=== PATIENT | female | born 1940 | race Caucasian/White ===

== ENCOUNTER 2018-10-12 10:57 | Emergency (ER) | payer OTHER ==
--- OUTSIDE RECORDS SUMMARY | 2018-10-12 11:01 | XMS REPORT | Continuity of Care Document ---
:1940 Author Organization Interface Problems Problem Status Onset Date Classification Date Comments Source Reported Medications Medication Details Route Status Patient Ordering Order Source Instructions Provider Date Allergies, Adverse Reactions, Alerts Substance Category Reaction Severity Reaction Status Date Comments Source type Reported Immunizations Immunization Date Given Site Status Last Updated Comments Source Results Order Results Value Reference Date Interpretation Comments Source Name Range Vital Signs Vital Sign Value Date Comments Source Encounters Location Location Encounter Encounter Reason Attending ADM DC Status Source Details Type Number For Provider Date Date Visit Outpatient [id number] [facility] 02[facility]24 [facility] [place] Outpatient [id number] [place] 03[facility]03 [facility] Out[facility] [id number] [facility] 05/12 [facility] Outpatient [id number] [place] 07[facility]14 [facility] Outpatient [id number] [place] 10/13 [facility] [place] Procedures Procedure Code Date Perfomer Comments Source
--- NOTE | 2018-10-12 11:37 | RAD REPORT ---
EXAM DESCRIPTION: CT - [id number] - 10/12/2018 11:28 am CLINICAL HISTORY: Trauma, head and neck injury. fall COMPARISON: Soft Tissue Neck Wo Contr dated 05/07/2017 TECHNIQUE: Axial 5 mm thick images of the head were obtained. Axial 2 mm thick images of the cervical spine were obtained with sagittal and coronal reconstruction images generated and reviewed. All CT scans are performed using dose optimization technique as appropriate and may include automated exposure control or mA/KV adjustment according to patient size. FINDINGS: CT HEAD WITHOUT CONTRAST: No acute hemorrhage, hydrocephalus or extra-axial collection is identified.Mild generalized brain atr ophy is present with mild periventricular and deep white matter chronic microvascular ischemic change s.No areas of brain edema or midline shift. The paranasal sinuses and mastoids are clear.The calvarium is intact. CT CERVICAL SPINE WITHOUT CONTRAST: No fracture or subluxation.Mild lower cervical degenerative changes.No prevertebral soft tissues swel ling is identified. Carotid atherosclerosis is present. IMPRESSION: No acute intracranial or cervical spine findings.
--- NOTE | 2018-10-12 11:42 | RAD REPORT ---
EXAM DESCRIPTION: CT - CTFB CLINICAL HISTORY: fall, Non contrast Fall, facial pain and trauma. COMPARISON: Head C Spine Mpr Wo Con dated 10/12/2018 TECHNIQUE: Axial 2 mm thick images of the face were obtained with sagittal and coronal reconstructio n images. All CT scans are performed using dose optimization technique as appropriate and may include automated exposure control or mA/KV adjustment according to patient size. FINDINGS: Minimal distal nasal bone fracture is present with soft tissue swelling.The mandible is in tact. The globes and orbital contents are grossly unremarkable.Carotid atherosclerosis.The paranasal sinuse s and mastoids are clear. IMPRESSION: Minimal nasal bone fracture.
--- NOTE | 2018-10-12 12:12 | RAD REPORT ---
EXAM DESCRIPTION: RAD - Shoulder Left 2 View - 10/12/2018 12:00 pm CLINICAL HISTORY: fall Trauma, fall, shoulder pain COMPARISON: No comparisons FINDINGS: Mildly impacted fracture the proximal left humerus is identified. A dislocation is not peggy dent.
--- NOTE | 2018-10-12 12:13 | RAD REPORT ---
EXAM DESCRIPTION: RAD - Elbow Left 3 View - 10/12/2018 12:00 pm CLINICAL HISTORY: fall Trauma, fall, left elbow pain COMPARISON: No comparisons FINDINGS: No fracture or dislocation seen involving the left elbow. Patient positioning mildly limit s quality of the submitted images.
[2018-10-12] MEDS ORDERED: TRAMADOL HCL 50 MG TAB ONE (12:55)
[2018-10-12] MEDS ORDERED: FENTANYL CITR 100 MCG/2 ML ONE (14:36)
[2018-10-12] MEDS ORDERED: KETOROLAC 30 MG/ML INJ ONE (15:43)
--- NOTE | 2018-10-12 16:15 | ER ---
Nurse's Notes [facility] Name: Kandy Calhoun Age: 77 yrs Sex: Female : 1940 Arrival Date: 10/12/2018 Time: 11:00 Bed 16 Private MD: Diagnosis: Humerus Fracture;Fracture of nasal bones Presentation: 10/12 11:00 Presenting complaint: Presenting complaint: EMS states: Left shoulder pain after hb mechanical fall from standing. Care prior to arrival: sling. Mechanism of Injury: Fall from standing position. Trauma event details: Injury occurred in the [facility], Injury occurred: at home. Injury occurred: October 12, 2018. 11:00 Acuity: HUONG 2 hb 11:00 Method Of Arrival: EMS: [facility] 11:10 Transition of care: patient was not received from another setting of care. Onset of hb symptoms was October 12, 2018. Risk Assessment: Do you want to hurt yourself or someone else? Patient reports no desire to harm self or others. Initial Sepsis Screen: Does the patient meet any 2 criteria? No. Patient's initial sepsis screen is negative. Does the patient have a suspected source of infection? No. Patient's initial sepsis screen is negative. Trauma Activation: Alert Physician: ED Physician; Name: ; Notified At: ; Arrived At: Physician: General Surgeon; Name: ; Notified At: ; Arrived At: Physician: Radiology; Name: ; Notified At: ; Arrived At: Physician: Respiratory; Name: ; Notified At: ; Arrived At: Physician: Lab; Name: ; Notified At: ; Arrived At: Historical: - Allergies: 11:07 Iodinated Contrast Media - IV Dye; hb 11:07 Sulfa (Sulfonamide Antibiotics); hb 11:08 hydrocodone bitartrate; hb - Home Meds: 11:07 Align 4 mg Oral cap [Active]; Desi Oral daily [Active]; aspirin 81 mg Oral chew 1 hb tab once daily [Active]; Avalide 150-12.5 mg Oral tab 1 tab once daily [Active]; azelastine hcl 0.1% daily [Active]; benzonatate 200 mg Oral cap 1 cap 3 times per day [Active]; biotin Oral daily [Active]; Flonase 50 mcg/actuation Nasal spsn 1 spray once daily [Active]; cholestyramine (with sugar) Oral [Active]; levothyroxine 50 mcg tab 1 tab once daily [Active]; Flonase 50 mcg/actuation Nasal spsn 1 spray once daily [Active]; methscopolamine 5 mg Oral tab 1 tab [Active]; Lipitor 40 mg Oral tab 1 tab once daily [Active]; metoprolol tartrate 25 mg Oral tab 1 tab 2 times per day [Active]; montelukast 10 mg Oral tab 1 tab once daily [Active]; Ocuvite 490-54-7-150 bo-uaee-od-mg Oral cap daily [Active]; Prilosec 40 mg Oral cpDR 1 cap once daily [Active]; Probiotic Oral daily [Active]; Zantac Oral once daily [Active]; Zetia 10 mg Oral tab 1 tab once daily [Active]; - PMHx: 11:08 High Cholesterol; Hypertension; lumbar stenosis; neuropathy; hb - PSHx: 11:08 colonoscopy; hb - Immunization history:: Adult Immunizations up to date. - Social history:: Smoking status: Patient/guardian denies using tobacco. - Immunization history: Last tetanus immunization: - up to date. - Ebola Screening: : No symptoms or risks identified at this time. Screenin:09 Abuse screen: Denies threats or abuse. Denies injuries from another. Nutritional hb screening: No deficits noted. Tuberculosis screening: No symptoms or risk factors identified. Fall Risk Total Richter Fall Scale indicates Low Risk Score (25-44 pts). Fall prevention measures have been instituted. Side Rails Up X 2 Frequent Obs/Assesments occuring Family Present and informed to notify staff if they need to leave bedside As available Patient and Family Educated on Fall Prevention Program and strategies. Primary Survey: 11:00 A: Airway: patent, No supplemental oxygen in use on arrival. Oral cavity: clear, hb Trachea midline. 11:00 Breathing/Chest: Respiratory pattern: regular, Respiratory effort: spontaneous, hb unlabored, Breath sounds: clear, bilaterally. Chest inspection: symmetrical rise and fall of the chest. Circulation: Skin color: pink, Skin temperature: warm, dry. Disability Alert. 12:00 Reassessment Airway Airway Patent Breathing/Chest Respiratory pattern Regular hb Respiratory effort Spontaneous Unlabored Chest inspection Symmetrical Circulation Pulses Palpable Color Greenback Temperature Warm Dry Disability Alert. 13:00 Reassessment Airway Airway Patent Breathing/Chest Respiratory pattern Regular hb Respiratory effort Spontaneous Unlabored Chest inspection Symmetrical Circulation Color Green[place] Temperature Warm Dry Disability Alert. 14:00 Reassessment Airway Airway Patent Breathing/Chest Respiratory pattern Regular hb Respiratory effort Spontaneous Unlabored Chest inspection Symmetrical Circulation Pulses Palpable Color [place] Temperature Warm Dry Disability Alert. 15:00 Reassessment Airway Airway Patent Breathing/Chest Respiratory pattern Regular hb Respiratory effort Spontaneous Unlabored Chest inspection Symmetrical Circulation Pulses Palpable Color Green[place] Temperature Warm Dry Disability Alert. Secondary Survey: 11:00 HEENT: No deficits noted. Gastrointestinal: No deficits noted. : No deficits noted. hb Musculoskeletal: Range of motion: limited in left shoulder Reports pain in left shoulder. Assessment: 11:10 General: Appears in no apparent distress. Behavior is calm, cooperative. Pain: Pain hb currently is 10 out of 10 on a pain scale. Neuro: Level of Consciousness is awake, alert, obeys commands, Oriented to person, place, time, situation. EENT: No signs and/or symptoms were reported regarding the EENT system. Cardiovascular: Heart tones S1 S2 present Capillary refill < 3 seconds Patient's skin is warm and dry. Respiratory: Airway is patent Trachea midline Respiratory effort is even, unlabored, Respiratory pattern is regular, symmetrical, Breath sounds are clear bilaterally. GI: No signs and/or symptoms were reported involving the gastrointestinal system. : No signs and/or symptoms were reported regarding the genitourinary system. Derm: Skin is intact, is healthy with good turgor. Musculoskeletal: Range of motion: limited in left shoulder Reports pain in left shoulder. 12:00 Reassessment: Patient appears in no apparent distress at this time. Patient and/or hb family updated on plan of care and expected duration. Pain level reassessed. Patient is alert, oriented x 3, equal unlabored respirations, skin warm/dry/pink. at bedside. 13:00 Reassessment: Patient appears in no apparent distress at this time. No changes from hb previously documented assessment. Patient and/or family updated on plan of care and expected duration. Pain level reassessed. Patient is alert, oriented x 3, equal unlabored respirations, skin warm/dry/pink. 14:00 Reassessment: Patient appears in no apparent distress at this time. No changes from hb previously documented assessment. Patient and/or family updated on plan of care and expected duration. Pain level reassessed. Patient is alert, oriented x 3, equal unlabored respirations, skin warm/dry/pink. remains at bedside. Vital Signs: 11:02 BP 155 / 97; Pulse 70; Resp 16; Pulse Ox 99% on R/A; Pain 9/10; hb 12:00 BP 136 / 78; Pulse 74; Resp 16; Pulse Ox 100% on R/A; Pain 7/10; hb 13:00 BP 142 / 82; Pulse 77; Resp 15; Pulse Ox 100% ; Pain 5/10; hb 14:02 BP 146 / 62; Pulse 70; Resp 17; Pulse Ox 94% on R/A; ca1 [place] Coma Score: 13:00 Eye Response: spontaneous(4). Verbal Response: oriented(5). Motor Response: obeys hb commands(6). Total: 15. 14:02 Eye Response: spontaneous(4). Verbal Response: oriented(5). Motor Response: obeys ca1 commands(6). Total: 15. Trauma Score (Adult): 11:02 Eye Response: spontaneous(1); Verbal Response: oriented(1); Motor Response: obeys hb commands(2); Systolic BP: > 89 mm Hg(4); Respiratory Rate: 10 to 29 per min(4); [place] Score: 15; Trauma Score: 12 12:00 Eye Response: spontaneous(1); Verbal Response: oriented(1); Motor Response: obeys hb commands(2); Systolic BP: > 89 mm Hg(4); Respiratory Rate: 10 to 29 per min(4); [place] Score: 15; Trauma Score: 12 ED Course: 11:00 Patient arrived in ED. hb 11:02 Triage completed. hb 11:05 Destiny Ledesma, RN is Primary Nurse. ca1 11:09 Arm band placed on right wrist. hb 11:09 Patient has correct armband on for positive identification. Placed in gown. Bed in low hb position. Call light in reach. Side rails up X2. 11:09 Patient maintains SpO2 saturation greater than 95% on room air. Thermoregulation: warm hb blanket given to patient. 11:13 Maik Ortiz PA is PHCP. rex 11:13 Jose Martin Hernandez MD is Attending Physician. jmm 11:29 CT Head C Spine In Process Unspecified. EDMS 11:29 Facial Bones W/O Con CT In Process Unspecified. EDMS 12:01 Shoulder Left (2 View) XRAY In Process Unspecified. EDMS 12:01 Elbow Left 3 View XRAY In Process Unspecified. EDMS 16:14 Aubrey Reynolds MD is Referral Physician. alyse Administered Medications: 13:13 Drug: UltRAM 50 mg Route: PO; hb 13:50 Follow up: Response: No adverse reaction; Pain is decreased hb 14:34 Drug: fentaNYL (PF) 50 mcg Route: IVP; Site: right antecubital; hb 15:45 Drug: Ketorolac 30 mg Route: IM; Site: right deltoid; hb Outcome: 16:10 Discharged to home via wheelchair, with family. hb 16:10 Condition: stable 16:10 Discharge instructions given to patient, Instructed on discharge instructions, follow up and referral plans. medication usage, Demonstrated understanding of instructions, follow-up care, medications, Prescriptions given X 2. 16:10 Patient's length of stay in the Emergency Department was greater than 2 hours. awaiting dispo, delayed due to pain controlPatient's length of stay extended due to 16:15 Discharge ordered by . alyse 16:29 Patient left the ED. tw2 Signatures: Dispatcher [employer] EDMS Maik Ortiz PA PA jmm Baxter, Heather RN Funmi Bravo RN RN tw2 Destiny Ledesma RN RN ca1
--- NOTE | 2018-10-12 16:15 | EDPHYS ---
Physician Documentation [facility] Name: Kandy Calhoun Age: 77 yrs Sex: Female : 1940 Arrival Date: 10/12/2018 Time: 11:00 Bed 16 Private MD: ED Physician Jose Martin Hernandez HPI: 10/12 11:17 This 77 yrs old Female presents to ER via EMS with complaints of Fall Injury. [facility] 11:17 Details of fall: The patient fell from an upright position, while walking. Onset: The [facility] symptoms/episode began/occurred acutely, just prior to arrival. Associated injuries: The patient sustained injury to the head, left arm. The patient has not experienced similar symptoms in the past. This is a 77 year old female with a history of hlp, htn that presents to the ED with left arm pain and nasal swelling after she states she tripped and fell from a standing position, just prior to arrival. Patient denies other injury. Historical: - Allergies: 11:07 Iodinated Contrast Media - IV Dye; hb 11:07 Sulfa (Sulfonamide Antibiotics); hb 11:08 hydrocodone bitartrate; hb - Home Meds: 11:07 Align 4 mg Oral cap [Active]; Desi Oral daily [Active]; aspirin 81 mg Oral chew 1 hb tab once daily [Active]; Avalide 150-12.5 mg Oral tab 1 tab once daily [Active]; azelastine hcl 0.1% daily [Active]; benzonatate 200 mg Oral cap 1 cap 3 times per day [Active]; biotin Oral daily [Active]; Flonase 50 mcg/actuation Nasal spsn 1 spray once daily [Active]; cholestyramine (with sugar) Oral [Active]; levothyroxine 50 mcg tab 1 tab once daily [Active]; Flonase 50 mcg/actuation Nasal spsn 1 spray once daily [Active]; methscopolamine 5 mg Oral tab 1 tab [Active]; Lipitor 40 mg Oral tab 1 tab once daily [Active]; metoprolol tartrate 25 mg Oral tab 1 tab 2 times per day [Active]; montelukast 10 mg Oral tab 1 tab once daily [Active]; Ocuvite 064-33-4-150 au-yijj-gz-mg Oral cap daily [Active]; Prilosec 40 mg Oral cpDR 1 cap once daily [Active]; Probiotic Oral daily [Active]; Zantac Oral once daily [Active]; Zetia 10 mg Oral tab 1 tab once daily [Active]; - PMHx: 11:08 High Cholesterol; Hypertension; lumbar stenosis; neuropathy; hb - PSHx: 11:08 colonoscopy; hb - Immunization history:: Adult Immunizations up to date. - Social history:: Smoking status: Patient/guardian denies using tobacco. - Immunization history: Last tetanus immunization: - up to date. - Ebola Screening: : No symptoms or risks identified at this time. ROS: 11:17 Constitutional: Negative for fever, chills, and weight loss, Cardiovascular: Negative jmm for chest pain, palpitations, and edema, Respiratory: Negative for shortness of breath, cough, wheezing, and pleuritic chest pain. 11:17 MS/extremity: Positive for injury or acute deformity, laceration. 11:17 All other systems are negative. Exam: 11:17 Constitutional: This is a well developed, well nourished patient who is awake, alert, jmm and in no acute distress. 11:17 Eyes: EOMI, no conjunctival erythema appreciated 11:17 Neck: Trachea midline, Supple Chest/axilla: Normal chest wall appearance and motion. Cardiovascular: Regular rate and rhythm. No edema appreciated Respiratory: Normal respirations, no respiratory distress appreciated Abdomen/GI: Non distended, soft 11:17 Head/face: abrasion noted to the bridge of the nose. 11:17 ENT: Nose: abrasion, that is superficial. 11:17 Musculoskeletal/extremity: left shoulder is ttp, full radial pulse is appreciated, compartments are soft, nvi. 11:17 Skin: Appearance: Color: normal in color. 11:17 Neuro: Orientation: is normal, Mentation: is normal, Memory: is normal. 11:17 Psych: Behavior/mood is pleasant, cooperative. Vital Signs: 11:02 BP 155 / 97; Pulse 70; Resp 16; Pulse Ox 99% on R/A; Pain 9/10; hb 12:00 BP 136 / 78; Pulse 74; Resp 16; Pulse Ox 100% on R/A; Pain 7/10; hb 13:00 BP 142 / 82; Pulse 77; Resp 15; Pulse Ox 100% ; Pain 5/10; hb 14:02 BP 146 / 62; Pulse 70; Resp 17; Pulse Ox 94% on R/A; ca1 [place] Coma Score: 13:00 Eye Response: spontaneous(4). Verbal Response: oriented(5). Motor Response: obeys hb commands(6). Total: 15. 14:02 Eye Response: spontaneous(4). Verbal Response: oriented(5). Motor Response: obeys ca1 commands(6). Total: 15. Trauma Score (Adult): 11:02 Eye Response: spontaneous(1); Verbal Response: oriented(1); Motor Response: obeys hb commands(2); Systolic BP: > 89 mm Hg(4); Respiratory Rate: 10 to 29 per min(4); [place] Score: 15; Trauma Score: 12 12:00 Eye Response: spontaneous(1); Verbal Response: oriented(1); Motor Response: obeys hb commands(2); Systolic BP: > 89 mm Hg(4); Respiratory Rate: 10 to 29 per min(4); Mia Score: 15; Trauma Score: 12 MDM: 11:17 Patient medically screened. [facility] 16:13 Data reviewed: vital signs, nurses notes. Counseling: I had a detailed discussion with alyse the patient and/or guardian regarding: the historical points, exam findings, and any diagnostic results supporting the discharge/admit diagnosis, lab results, the need for outpatient follow up, to return to the emergency department if symptoms worsen or persist or if there are any questions or concerns that arise at home. 16:13 Response to treatment: the patient's symptoms have mildly improved after treatment. [facility] 16:13 ED course: patient is alert and non toxic in appearance in the ED. patient advised of alyse the need to follow up with orthopedics in 1 to 2 days. given return precautions. patient understood and agrees with the plan of care. . 10/12 11:19 Order name: CT Head C Spine; Complete Time: 11:47 [facility] 10/12 11:19 Order name: Facial Bones W/O Con CT; Complete Time: 11:47 [facility] 10/12 11:19 Order name: Shoulder Left (2 View) XRAY; Complete Time: 12:18 [facility] 10/12 11:19 Order name: Elbow Left 3 View XRAY; Complete Time: 12:18 [facility] Administered Medications: 13:13 Drug: UltRAM 50 mg Route: PO; hb 13:50 Follow up: Response: No adverse reaction; Pain is decreased hb 14:34 Drug: fentaNYL (PF) 50 mcg Route: IVP; Site: right antecubital; hb 15:45 Drug: Ketorolac 30 mg Route: IM; Site: right deltoid; hb Disposition: 16:42 Co-signature as Attending Physician, Jose Martin Hernandez MD. Chart complete. rn Disposition: 10/12/18 16:15 Discharged to Home. Impression: Humerus Fracture, Fracture of nasal bones. - Condition is Stable. - Discharge Instructions: Humerus Fracture Treated With Immobilization, Nasal Fracture. - Prescriptions for Amoxicillin 875 mg Oral Tablet - take 1 tablet by ORAL route every 12 hours for 10 days; 20 tablet. Ultracet 37.5- 325 mg Oral Tablet - take 1 tablet by ORAL route every 6 hours - for up to 5 days; do not exceed 8 tablets per day.; 20 tablet. - Medication Reconciliation Form, Thank You Letter, Antibiotic Education, Prescription Opioid Use form. - Follow up: Aubrey Reynolds MD; When: 2 - 3 days; Reason: Recheck today's complaints, Continuance of care, Re-evaluation by your physician. Signatures: Dispatcher [employer] EDMS Maik Ortiz PA PA jm Jose Martin Hernandez MD MD rn Baxter, Heather, RN RN hb Wise, Tara, RN RN tw2 Corrections: (The following items were deleted from the chart) 16:29 16:15 10/12/2018 16:15 Discharged to Home. Impression: Humerus Fracture; Fracture of tw2 nasal bones. Condition is Stable. Forms are Medication Reconciliation Form, Thank You Letter, Antibiotic Education, Prescription Opioid Use. Follow up: Aubrey Reynolds; When: 2 - 3 days; Reason: Recheck today's complaints, Continuance of care, Re-evaluation by your physician. alyse
[2018-10-12 21:56] VITALS: O2SAT 94
[2018-10-12 22:00] VITALS: BP 132/65; TEMP 98.9
== END 2018-10-12 16:29 | disposition home or self-care (01) ==
LOC: ER 10:57
DX: S42.302A Unspecified fracture of shaft of humerus, left arm, initial encounter for closed fracture (principal); S02.2XXA Fracture of nasal bones, initial encounter for closed fracture; W18.30XA Fall on same level, unspecified, initial encounter; Y93.01 Activity, walking, marching and hiking; Y92.9 Unspecified place or not applicable; I10 Essential (primary) hypertension; E78.00 Pure hypercholesterolemia, unspecified; Z79.82 Long term (current) use of aspirin; Z88.2 Allergy status to sulfonamides; Z88.5 Allergy status to narcotic agent; Z91.048 Other nonmedicinal substance allergy status
CPT/HCPCS: 70450; 70486; 72125; 73030; 73080; 76377; 96372; 96374; 99284; J3010

== ENCOUNTER → 2020-03-31 | Day surgery (SDC) | payer OTHER ==
--- OUTSIDE RECORDS SUMMARY | 2020-03-31 10:35 | XMS REPORT ---
:1940 Author Organization [employer] Care Team Providers Name Role Phone ReynoldsAubrey Provider Role Unavailable Allergies, Adverse Reactions, Alerts Substance Reaction Event Type Iodine Info Not Available Drug Allergy Problems Problem Type Condition Code Onset Dates Condition Statu s Problem Pain, joint, shoulder, left M25.512 Active Problem Other closed nondisplaced fracture S42.295A Active of proximal end of left humerus, initial encounter Problem Closed traumatic displaced S42.202D A ctive fracture of proximal end of left humerus with routine healing Assessment Closed traumatic displaced S42.202D A ctive fracture of proximal end of left humerus with routine healing Medications Medication Code Code Instructions Start End Status Dosage System Date Date Levothyroxine [facility] [address]-92 Active not Sodium defined Fluticasone [facility] [address]-74 Active not Propionate defined Biotin [facility] 26[address]992 Active not defined Probiotic [facility] 85090-[address]24 Active not defined Metoprolol [facility] [address]-43 Active not Tartrate defined Montelukast Sodium [facility] [address]-16 Active not defined Amoxicillin [facility] [address]-75 Active not defined Benzonatate [facility] [address]-40 Active not defined Zantac [facility] [address]-04 Active not defined Zetia [facility] [address]-06 Active not defined Prilosec [facility] [address]-17 Active not defined Ocuvite [facility] 0 Active not defined Azelastine HCl [facility] [address]-38 Active not defined Tramadol-Acetamino [facility] [address]-15 Active not phen defined Methscopolamine [facility] [address]-88 Active no t [place] defined Tramadol HCl [facility] [id number] 50 MG Orally Oct 16, Active 1 tablet every 6 hrs 2018 as needed Avalide [facility] [address]-25 Active not defined Align [facility] 79129-[address]62 Active not defined Cholestyramine [facility] [address]-53 Active not defined Results No Known Results Summary Purpose eClinicalWorks Submission
--- OUTSIDE RECORDS SUMMARY | 2020-03-31 10:35 | XMS REPORT ---
:1940 Author Organization [employer] Care Team Providers Name Role Phone Reynolds Aubrey Provider Role Unavailable Allergies, Adverse Reactions, Alerts [...] of left humerus with routine healing Assessment Pain, joint, shoulder, left M25.512 Active Medications Medication Code Code Instructions Start End Status Dosage System Date Date Zantac [facility] [address]-12 Active not defined Montelukast Sodium [facility] [address]-99 Active not defined Tramadol HCl [facility] 75870903591 50 MG Orally Oct 16, Active 1 tablet every 6 hrs 2017 as needed Methscopolamine [facility] [address]-49 Active no t [place] defined Align [facility] 23728-46788 Active not defined Zetia [facility] [address]-32 Active not defined Metoprolol [facility] [address]-53 Active not Tartrate defined Tramadol-Acetamino [facility] [address]-85 Active not phen defined Biotin [facility] 25848-20871 Active not defined Ocuvite [facility] 0 Active not defined Fluticasone [facility] [address]-39 Active not Propionate defined Levothyroxine [facility] [address]-71 Active not Sodium defined Prilosec [facility] [address]-04 Active not defined Probiotic [facility] 05436-45304 Active not defined Avalide [facility] [address]-71 Active not defined Cholestyramine [facility] [address]-53 Active not defined Azelastine HCl [facility] [address]-38 Active not defined Amoxicillin [facility] [address]-89 Active not defined Benzonatate [facility] [address]-90 Active not defined Results No Known Results Summary Purpose [employer]ClinicalWorks Submission
--- OUTSIDE RECORDS SUMMARY | 2020-03-31 10:35 | XMS REPORT | Continuity of Care Document ---
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 jeffry disease (disorder) N euro Medications No Data Provided for This Section Allergies, Adverse Reactions, Alerts Substance Category Reaction Severity Reaction Status Date Comments S ource type Reported penicillins Assertion Drug Active Mi jeffry allergy Neuro sulfa drugs Assertion Drug Active Mi jeffry allergy Neuro Adhesive Tape Assertion Drug Active Mischer allergy Neuro oxyCODONE Assertion Drug Active Misc her allergy Neuro Immunizations No Data Provided for This Section Results No Data Provided for This Section Pathology Reports No Data Provided for This Section Diagnostic Reports No Data Provided for This Section Consultation Notes No Data Provided for This Section Discharge Summaries No Data Provided for This Section History and Physicals No Data Provided for This Section Vital Signs No Data Provided for This Section Encounters Location Location Encounter Encounter Reason Attending ADM [place] Stat Source Details Type Number For Provider Date Date Visit Outpatient [id number] SC[place] 02/[address] [facility] Outpatient [id number] SCOTT 03/[address] [facility] Outpatient [id number] [place] 05/[address] [facility] Outpatient [id number] SC[place] 07/[address] [facility] Outpatient [id number] SCOTT 10/[address] [facility] MNA Ambulatory [id number] [place] 10/13 10/13 [facility] Pre[facility] [place] Outpatient [id number] SCOTT 01/[address] [facility] Outpatient [id number] SCOTT 07/[address] [facility] MNA Ambulatory [id number] [place] 07/29 07/29 [facility] Pre-Reg Neuro [place] Procedures Procedure Code Date Perfomer Comments Source Laminectomy for [id number] 11/17/2016 Kina N euro decompression and exploration Assessment and Plan No Data Provided for This Section Plan of Care No Data Provided for This Section Social History Social History Date Source Social History TypeResponse 01/21/2019 Kina Neur o Smoking Status Former smoker; Exposure to Tobacco Smoke Unable to obtain; Cigarette Smoking Last 365 Days Yes; Reg Smoking Cessation Counseling No1 entered on: 01/21/19 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
--- OUTSIDE RECORDS SUMMARY | 2020-03-31 10:35 | XMS REPORT ---
:1940 Author Organization [facility] t Address [address] [place] [address] Care Team Providers Name Role Phone Tobias Hogue Attending Clinician Problems Condition Condition Condition Status Onset Resolution Last Treating Co mments Source Name Details Category Date Date Treatment Clinician Date Pain, Pain, Problem Active [facility] shoulder, shoulder, Gregor roly left left l Outpati ent Clinics Other Other Problem Active [facility] closed closed [facility] - nondisplac nondisplac Me moria ed ed l fracture fracture Outpat i of of ent proximal proximal Clinic s end of end of left left humerus, humerus, initial initial encounter encounter Closed Closed Diagnosis Active [facility] traumatic traumatic Luke s - displaced displaced Gregor roly fracture fracture l of of Outpati proximal proximal ent end of end of Clinics left left humerus humerus with with routine routine healing healing Allergies, Adverse Reactions, Alerts Allergy Allergy Status Severity Reaction(s) Onset Inactive Treating Comm ents Source Name Type Date Date Clinician Iodine Adverse Active Info Not [facility] Reaction Available [facility] Medications Ordered Filled Start Stop Current Ordering Indication Dosage Frequency Signature Comments Components Source Medication Medication Date Date Medication? Clinician (SIG) Name Name Tramadol Tramadol 2017-11 Yes Aubrey [address] [facility] HCl HCl 1-30 Reynolds as needed [facility] 00 l Outpati ent Clinics Montelukast Montelukast Yes Aubrey not [facility] Sodium Sodium Reynolds defined [facility] Avalide Avalide Yes Aubrey not [facility] Reynolds defined [facility] Fluticasone Fluticasone Yes Aubrey not [facility] Propionate Propionate Reynolds defined [facility] Probiotic Probiotic Yes Aubrey not [facility] Reynolds defined [facility] Azelastine Azelastine Yes Aubrey not [facility] HCl HCl Reynolds defined [facility] Prilosec Prilosec Yes Aubrey not [facility] Reynolds defined [facility] Align Align Yes Aubrey not [facility] Reynolds defined [facility] Zantac Zantac Yes Aubrey not [facility] Reynolds defined [facility] Zetia Zetia Yes Aubrey not [facility] Reynolds defined [facility] Cholestyram Cholestyram Yes Aubrey not [facility] ine ine Reynolds defined [facility] Biotin Biotin Yes Aubrey not [facility] Reynolds defined [facility] Amoxicillin Amoxicillin Yes Aubrey not [facility] Reynolds defined [facility] Tramadol-Ac Tramadol-Ac Yes Aubrey not [facility] etaminophen etaminophen Reynolds defined [facility] Metoprolol Metoprolol Yes Aubrey not [facility] Tartrate Tartrate Reynolds defined Mayelin kes - [facility] ent Clinics Benzonatate Benzonatate Yes Aubrey not [facility] Reynolds defined [facility] Levothyroxi Levothyroxi Yes Aubrey not [facility] ne Sodium ne Sodium Reynolds defined [facility] Ocuvite Ocuvite Yes Aubrey not [facility] Reynolds defined [facility] Methscopola Methscopola Yes Aubrey not [facility] mine mine Reynolds defined [facility] Procedures This patient has no known procedures. Encounters Start End Encounter Admission Attending Care Care Encounter Source Date/Time Date/Time Type Type Clinicians Facility Department ID 2019-07-29 2019-07-29 [id number] 11:30:00 11:30:00 Mahendra 06 [facility] 2019-01-11 2019-01-11 [facility] [id number] 09:[facility]00 09:00:00 [facility] 2018-12-10 2018-12-10 Outpatient Joan Hart [id number] 08:00:00 08:00:00 t [facility] ent Clinics 2018-11-03 2018-11-03 Outpatient Joan Hart [id number] 10:30:00 10:30:00 t [facility] Clin[facility] 2018-10-13 2018-10-13 Outpatient VERONICA Hogue [facility] [id number] 09:30:00 09:30:00 Mahendra [facility] k[facility] Results This patient has no known results.
--- OUTSIDE RECORDS SUMMARY | 2020-03-31 10:35 | XMS REPORT | Summary of Care ---
:1940 Author Organization [facility] Neurology [place] Address [address] [place] [address]- Encounter HQ Encntr_alias(FIN) [id number] Date(s): 10/13/18 - 10/13/18 [facility] [address] [place] [address]- [phone] Attending Physician: Mahendra Hogue MD Referring Physician: Mahendra Hogue MD Vital Signs No data available for this section Problem List Condition Effective Dates Status Health Status Informant Hyperlipidemia(Confirmed) Active Hypertension(Confirmed) Active Hypothyroidism(Confirmed) Active Lumbar radiculopathy(Confirmed) Active Peripheral neuropathy(Confirmed) Active Allergies, Adverse Reactions, Alerts Substance Reaction Severity Status penicillins Active sulfa drugs Active Adhesive Tape Active oxyCODONE Active Medications No data available for this section Results No data available for this section Immunizations No data available for this section Procedures Procedure Date Related Diagnosis Body Site Status Laminectomy for decompression and 2017 Completed exploration Social History Social History Type Response Smoking Status Former smoker; Exposure to T obacco Smoke Unable to obtain; Cigarette Smoking Last 365 Days Yes; Reg Smoking Cessation Counseling No1 entered on: 01/21/19 1SMOKED CIGARETTES FROM HIGH SCHOOL-9 TO JUNE 02, 2010 SOME DAYS NO CIGARETTES- RARELY A PK A DAY Assessment and Plan No data available for this section
--- OUTSIDE RECORDS SUMMARY | 2020-03-31 10:35 | XMS REPORT | Summary of Care ---
:1940 Author Organization [facility] Neurology [place] Address [address] [place] [address]- phone Encounter HQ Encntr_alias(FIN) [id number] Date(s): 07/29/19 - 07/29/19 [facility] [address] [place] [address]- [phone] Attending Physician: Mahendra Hogue MD Vital Signs No [...]
--- OUTSIDE RECORDS SUMMARY | 2020-03-31 10:35 | XMS REPORT ---
[...] Start End Status Dosage System Date Date Montelukast Sodium [facility] [address]-48 Active not defined Avalide [facility] [address]-71 Active not defined Fluticasone [facility] [address]-13 Active not Propionate defined Probiotic [facility] 58719-[address] Active not defined Methscopolamine [facility] [address]-82 Active no t [place] defined Azelastine HCl [facility] [address]-28 Active not defined Prilosec [facility] [address]-95 Active not defined Align [facility] 72344-[address] Active not defined Zantac [facility] [address]-46 Active not defined Zetia [facility] [address]-69 Active not defined Cholestyramine [facility] [address]-78 Active not defined Biotin [facility] 31165-[address]88 Active not defined Amoxicillin [facility] [address]-63 Active not defined Tramadol-Acetamino [facility] [address]-63 Active not phen defined Metoprolol [facility] [address]-71 Active not Tartrate defined Tramadol HCl [facility] 80395907214 50 MG Orally Oct 16, Active 1 tablet every 6 hrs 2017 as needed Benzonatate [facility] [address]-00 Active not defined Levothyroxine [facility] [address]-53 Active not Sodium defined Ocuvite [facility] 0 Active not defined Results No Known Results Summary Purpose eClinicalWorks Submission
--- NOTE | 2020-03-31 11:12 | RAD REPORT ---
EXAM DESCRIPTION: US - Breast Core BX w/US Guidance - 03/31/2020 10:57 am CLINICAL HISTORY: R92.8lateral left breast mass COMPARISON: Mammography and sonography March 15 TECHNIQUE: The patient presents for ultrasound-guided biopsy of a previously detailed 3 o'clock left breast mass breast mass. The ultrasound-guided core biopsy procedure, risks and alternatives were discussed with the patient i n detail. After answering all questions, both oral and written consent were obtained. Time out proced ure was performed. The patient had no contraindicated allergy or medication history. Preliminary imaging identified the lateral left breast mass. The left breast was prepped and draped i n the usual sterile fashion. From a lateral and slightly inferior approach, skin and deeper tissues w ere anesthetized with 1% lidocaine. Under direct sonographic visualization a 14 gauge vacuum assisted core biopsy needle was advanced and placed at the margin of the mass. There were a total of 2 core b iopsies obtained under direct sonographic guidance. The mass did appear to have distortion in contour supporting transit of the biopsy needle through the small mass. At the conclusion of the procedure a localization clip was placed under sonographic guidance. Post biopsy imaging showed no hematoma or measurable bleeding within the breast. Hemostasis was obtai bailey at the skin site with a sterile bandage placed. Post procedure care and precaution instructions were given to the patient. IMPRESSION: 1. Ultrasound-guided core biopsy was performed of the left breast mass. All obtained mat erial was given to pathology for histologic assessment. 2. Post biopsy localization clip was placed under ultrasound guidance.
== END ==
LOC: DS 09:45
PROVIDERS: ATTEND Specialist
DX: C50.912 Malignant neoplasm of unspecified site of left female breast (principal); Z17.1 Estrogen receptor negative status [ER-]
CPT/HCPCS: 19083; 88305

== ENCOUNTER 2020-04-26 06:34 | Day surgery (SDC) | payer OTHER ==
[2020-04-21 10:10] LABS: Absolute Lymphocytes (CBC) 2.1 K/uL (0.7-4.9); Basophils % 0.7 % (0-1.3); Lymphocytes % 17.4 % (15.3-44.8); MPV 10.6 fL (7.6-11.3); RBC Red Blood Cell Count 4.38 M/uL (3.86-4.86)
--- NOTE | 2020-04-21 10:19 | RAD REPORT ---
EXAM DESCRIPTION: RAD - Chest Pa And Lat (2 Views) - 04/21/2020 10:10 am CLINICAL HISTORY: preop Chest pain. COMPARISON: Chest Pa And Lat (2 Views) dated 09/29/2018; Chest Pa And Lat (2 Views) dated 07/30/2017; Chest Single View dated 05/07/2017; Chest Single View dated 02/26/2017; Breast Core BX w/US Guidance d ated 03/31/2020 FINDINGS: Mild bilateral interstitial pulmonary opacities. This may represent interstitial pulmonary edema or interstitial pneumonia. The heart is mildly prominent in size. No displaced fractures. IMPRESSION: Mild CHF versus interstitial pneumonia.
[2020-04-21 10:27] LABS: Potassium 3.5 mmol/L (3.5-5.1)
--- NOTE | 2020-04-21 11:50 | EKG ---
Test Date: 2020-04-21 Test Time: 08:31:29 [employer]: ISRA MEASUREMENT RESULTS: Intervals: Rate: 62 NH: 160 QRSD: 76 QT: 412 QTc: 418 [place]: P: 23 NH: 160 QRS: 15 T: 20 INTERPRETIVE STATEMENTS: Normal sinus rhythm Normal ECG Compared to ECG 05/07/2017 13:51:34 Sinus arrhythmia no longer present Electronically Signed On 04-21-20 11:50:05 CDT by Zurdo Schumacher
--- OUTSIDE RECORDS SUMMARY | 2020-04-26 06:41 | XMS REPORT | Continuity of Care Document ---
:1940 Author Organization [employer] Care Team Providers Name Role Phone [employer] Unavailable Un available Problems Problem Status Onset [...] Location Location Encounter Encounter Reason Attending ADM [place] Stat Source Details Type Number For Provider Date Date Visit Outpatient [id number] [place] 02/24 Active [facility] [place] Outpatient [id number] [place] 03/03 Active [facility] Outpatient [id number] [place] 05/12 Active [facility] [place] Outpatient [id number] [place] 07/14 Active [facility] [place] Outpatient [id number] [place] 10/13 Active [facility] [place] MNA Ambulatory [id number] [place] 10/13 10/13 [facility] Pre[facility] [place] Outpatient [id number] [place] 01/21 Active [facility] [place] Outpatient [id number] [place] 07/29 Active [facility] MNA Ambulatory [id number] [place] 07/29 07/29 [facility] Pre-Reg Neuro [place] Procedures Procedure Code Date Perfomer Comments Source Laminectomy for [id number] 11/17/2016 Kina N euro decompression and exploration [...]
--- OUTSIDE RECORDS SUMMARY | 2020-04-26 06:42 | XMS REPORT | Continuity of Care Document ---
:1940 Author Organization [facility] t Address [address] [place] [address] Care Team Providers Name Role Phone Tobias [...] humerus with with routine routine healing healing Hyperlipid Problem Active 2019-07-31 M emoria emia 21:28:36 l (disorder) Dimitri n Hyperlipid emia (disorder) Active Problem 07/31/2019 [facility] Hypertensi Problem Active 2019-07-31 M emoria ve 21:28:36 l disorder, Rishi systemic Hypertensi arterial ve (disorder) disorder, systemic arterial (disorder) Active Problem 07/31/2019 [facility] Hypothyroi Problem Active 2019-07-31 M emoria dism 21:28:36 l (disorder) Dimitri n Hypothyroi dism (disorder) Active Problem 07/31/2019 [facility] Lumbar Problem Active 2019-07-31 Memor ia radiculopa 21:28:36 l thy Lumbar Rishi (disorder) radiculopa thy (disorder) Active Problem 07/31/2019 [facility] Peripheral Problem Active 2019-07-31 M emoria nerve 21:28:36 l disease [place] (disorder) Peripheral nerve disease (disorder) Active Problem 07/31/2019 [facility] Allergies, Adverse Reactions, Alerts Allergy Allergy Status Severity Reaction(s) Onset Inactive Treating Comm ents Source Name Type Date Date Clinician Iodine Adverse Active Info Not [facility] Reaction Available [facility] penicill penicill Active Memori a ins ins l [facility]ishi sulfa sulfa Active Memoria drugs drugs l [facility]ishi Adhesive Adhesive Active Memori a Tape Tape l [place] oxyCODON oxyCODON Active Memori a E E l [place] Social History Smoking Status Start Date Stop Date Source Social History 2019-01-21 16:44:45 2019[facility] Ordered Filled Start Stop Current Ordering [...] St mine mine Reynolds defined [facility] Procedures Procedure Date / Time Performed Performing Clinician Iqra e Laminectomy for 2016-11-17 00:00:00 [facility] decompression and exploration Encounters Start End Encounter Admission Attending Care Care Encounter Source Date/Time Date/Time Type Type Clinicians Facility Department ID 2019-07-29 2019-07-29 [id number] 11:30:00 11:30:00 Mahendra Collado 2019-01-11 2019-01-11 [facility] [id number] 09:00:00 09:00:00 [facility] 2018-12-10 2018-12-10 [facility] [id number] 08:00:00 08:00:00 [facility] 2018-11-03 2018-11-03 [facility] [id number] 10:30:00 10:30:00 [facility] 2018-10-13 2018-10-13 [id number] 09:30:00 09:30:00 Mahendra Collado Results This patient has no known results.
[2020-04-26] MEDS ORDERED: Ringers Lactate 1,000 ML IV ONE (06:49)
--- NOTE | 2020-04-26 08:33 | RAD REPORT ---
EXAM DESCRIPTION: US - Brst,Preop NL Wire Init w/Guid - 04/26/2020 8:23 am CLINICAL HISTORY: NDL LOC COMPARISON: Breast Core BX w/US Guidance dated 03/31/2020 TECHNIQUE: Patient presents for preoperative localization of a previously biopsied left breast mass. Consent was obtained as part of the surgical consent. Patient had no contraindicated allergy or medi cation history. Preliminary imaging again identified the approximately 15 millimeter lobulated hypoechoic mass in the 2 o'clock left breast. Lesion is approximately 1 centimeter below the skin surface. Skin was prepped and draped in the usual sterile fashion. From a lateral approach, skin and deeper ti ssues were anesthetized with 1% lidocaine. Under direct sonographic visualization a Huffman mammo lock needle was advanced. The tip penetrated the mass in the hookwire was set passing through the lesion. The patient was transferred to the surgical holding area for pending excisional biopsy. There was no hematoma or procedure related complication. IMPRESSION: Ultrasound-guided needle localization of the lateral left breast mass as detailed.
--- NOTE | 2020-04-26 08:51 | RAD REPORT ---
EXAM DESCRIPTION: NM - Lymphoscintigraphy - 04/26/2020 8:33 am FINDINGS: The patient was administered 4 periareolar injections of 0.1 millicuries technetium 99 M s ulfur colloid as a sentinel node procedure. The 4 injections are visible. Activity is seen surroundin g each injection site. Injection time was 0725 hours
[2020-04-26] MEDS ORDERED: METHYLENE BLUE 0.5% 10 ML AMP ONE (09:11)
[2020-04-26] MEDS: CEFAZOLIN/SWI 1gm 1 GM/10 ML SYR ONE ×2 (09:29→09:40)
[2020-04-26] MEDS ORDERED: LIDOCAINE 2% MPF 5 ML VIAL ONE (09:41)
[2020-04-26] MEDS ORDERED: FENTANYL CITR 100 MCG/2 ML ONE (09:41)
[2020-04-26] MEDS ORDERED: propofoL 200 MG/20 ML VIAL IV ONE (09:41)
[2020-04-26] MEDS ORDERED: ROCURONIUM 50 MG/5 ML VIAL IV ONE (09:42)
[2020-04-26] MEDS ORDERED: ONDANSETRON 4 MG/2 ML VIAL ONE (10:51)
[2020-04-26] MEDS ORDERED: Mastisol Adhesive Liq ONE (10:55)
[2020-04-26] MEDS ORDERED: NS 0.9% VIAL 30 ML ONE (11:11)
--- NOTE | 2020-04-26 11:12 | RAD REPORT ---
EXAM DESCRIPTION: US - Surgical Specimen - 04/26/2020 10:47 am FINDINGS: Limited sonographic evaluation was performed of the left breast surgical specimen. The mass is contained within the specimen.
[2020-04-26] MEDS ORDERED: KETOROLAC 30 MG/ML INJ ONE (11:15)
[2020-04-26 11:41] VITALS: TEMP 97.9
--- NOTE | 2020-04-26 11:49 | OP ---
Surgeon: Sushil Morton MD Addendum: I was notified by the pathologist that the medial inferior margin was close, therefore I went back in and reexcised that area, labeled appropriately and gave it back, sent it as permanent. Then wound was irrigated, bleeding controlled with cautery. 3-0 chromic used to approximate the subcutaneous tissue and close the skin. Sterile dressing was applied. Patient was awakened and taken to Recovery in good general condition. TROY/LYRIC Voice ID: [id number] Report ID: [id number] MTDD
[2020-04-26] MEDS ORDERED: HYDROCODONE/APAP 7.5/325 MG TAB ONE (12:24)
--- NOTE | 2020-04-26 13:04 | OP ---
Date of Procedure: 04/26/2020 Surgeon: Sushil Morton MD Pump Machine Operator: HANNAH Sharma. Preoperative Diagnosis: Left breast cancer. Postoperative Diagnosis: Left breast cancer. Procedure Performed: [place] node biopsy and left breast lumpectomy. Estimated Blood Loss: Minimal. Specimen: Left breast margins negative, sentinel node negative for metastatic disease. Findings: As above. Anesthesia: General. Complications: None. Disposition: Patient tolerated the procedure in stable condition, taken to the recovery room in good general condition. Procedure In Detail: The patient was brought to the OR and placed in supine position. General anest hesia was begun. Patient was prepped and draped in usual sterile fashion. After the patient was inj ected with methylene blue and the breast was massaged under sterile condition as well. Then counter for the sentinel node was utilized and the sentinel node was identified in the left axilla, appropria te counts were recorded in the medical record. A 3 cm incision was made in the axilla and then a dori e lymph node deep to the subcutaneous tissue was identified. Vascular clips were utilized, lymph nod e was removed and then it was examined, frozen sectioned and it was negative for metastatic disease. The lumpectomy was performed utilizing ellipse incision approximately 8 x 2 cm around the area where the needle was underneath the skin. Subcutaneous tissue was divided. Flaps somewhat created for se gmental mastectomy on the lateral area around [address] around the tip of the needle , excised, sent to Radiology for confirmation and then frozen section for margin check, which was neg ative and subsequently both the wounds were irrigated and 3-0 chromic was used to approximate the sub cutaneous tissue and close the skin. Sterile dressing was applied. The patient was awakened, taken to Recovery room in good general condition Discharge Note: The patient will go to day surgery and home when stable. Disposition: Home. Condition: Stable. Discharge Instructions: Resume home medications and diet. Activity as tolerated. No heavy lifting. Keep dressing clean and dry. Sponge bathe only. Followup in my office in 1 week. Call for appoin tment. Tylenol No. 3 one tablet p.o. q.4 pain, Keflex 500 mg p.o. q.6 h. /MODL Voice ID: [id number] Report ID: [id number]
[2020-04-26 13:14] VITALS: BP 130/58; O2SAT 95
== END 2020-04-26 12:50 | disposition home or self-care (01) ==
LOC: OR 06:34
PROVIDERS: ATTEND Surgery
PROC: 0HBU0ZZ Excision of Left Breast, Open Approach (ICD-10-PCS; 2020-04-26)
PROC: 07B60ZX Excision of Left Axillary Lymphatic, Open Approach, Diagnostic (ICD-10-PCS; principal; 2020-04-26 09:15)
DX: D05.12 Intraductal carcinoma in situ of left breast (principal); Z11.59 Encounter for screening for other viral diseases
CPT/HCPCS: 93005; 85025; 80048; 36415; 88329; 88305; 88307 ×2; 88333; 71046; 76098; 19285; 78195; 38525; 38900; 19301; J2704; J3010; J0690; J7120; J2405; A9541

== ENCOUNTER 2020-06-23 07:32 | Day surgery (SDC) | payer OTHER ==
[2020-06-16 11:23] LABS: Absolute Lymphocytes (CBC) 2.7 K/uL (0.7-4.9); Basophils % 0.9 % (0-1.3); Lymphocytes % 23.7 % (15.3-44.8); MPV 10.6 fL (7.6-11.3)
--- OUTSIDE RECORDS SUMMARY | 2020-06-23 07:45 | XMS REPORT | Continuity of Care Document ---
:1940 Author Organization [facility] Care Team Providers Name Role Phone [facility] Unavailable Un available Problems Problem Status Onset [...] Location Location Encounter Encounter Reason Attending ADM [place] Stat Source Details Type Number For Provider Date Date Visit Outpatient [id number] [place] 02/24 Active [facility] Outpatient [id number] [place] 03/03 Active [facility] Outpatient [id number] [place] 05/12 Active [facility] [place] Outpatient [id number] SCOTT 07/14 Active [facility] [place] Outpatient [id number] [place] 10/13 Active [facility] [place] [facility] Ambulatory [id number] [place] 10/13 10/13 [facility] [place] Outpatient [id number] SCOTT 01/21 Active [facility] Outpatient [id number] [place] 07/29 Active [facility] Ambulatory [id number] [place] 07/29 07/29 [facility] [place] Procedures Procedure Code Date Perfomer Comments Source Laminectomy for [id number] 11/17/2016 [facility] decompression and exploration [...]
--- OUTSIDE RECORDS SUMMARY | 2020-06-23 07:45 | XMS REPORT | Continuity of Care Document ---
:1940 Author Organization [facility] t Address [address] [place] [address] Care Team Providers Name Role Phone Tobias [...] 2019-07-31 M emoria ve 21:28:36 l disorder, [place] systemic Hypertensi arterial ve (disorder) disorder, systemic [...] 2019-07-31 M emoria nerve 21:28:36 l disease [place] (disorder) Peripheral nerve disease (disorder) Active Problem 07/31/2019 [facility] Allergies, Adverse Reactions, Alerts Allergy Allergy Status Severity Reaction(s) Onset Inactive Treating Comm ents Source Name Type Date Date Clinician Iodine Adverse Active Info Not [facility] penicill penicill Active [facility] ins ins [facility] [place] sulfa sulfa Active [facility] drugs l [place] Adhesive Adhesive Active Memori a Tape Tape l [facility] oxyCODON oxyCODON Active Memori a E E l [facility] Social History Smoking Status Start Date Stop Date Source Social History 2019-01-21 16:44:45 2019-01-21 16:44[facility] Ordered Filled Start Stop Current Ordering [...] l Outpati ent Clinics Ocuvite Ocuvite Yes Aubery not [facility] defined [facility] Methscopola Methscopola Yes Aubrey not [facility] Procedures Procedure Date / Time Performed Performing Clinician Iqra e Laminectomy for 2016-11-17 00:00:00 [facility] decompression and exploration Encounters Start End Encounter Admission Attending Care Care Encounter Source Date/Time Date/Time Type Type Clinicians Facility Department ID 2019-07-29 2019-07-29 [id number] 11:30:00 11:30:00 Mahendra Collado 2019-01-11 2019-01-11 [facility] [id number] [facility] 09:00:00 09:00:00 [facility] 2018-12-10 2018-12-10 [facility] [id number] [facility] 08:00:00 08:00:00 [facility] Clin[facility] 2018-11-03 2018-11-03 [facility] [id number] [facility] [address] 10[facility]30:00 10:30:00 [facility] 2018-10-13 2018-10-13 [id number] 09:30:00 09:30:00 Mahendra Collado Results This patient has no known results.
[2020-06-23] MEDS ORDERED: Ringers Lactate 1,000 ML IV ONE (07:58)
[2020-06-23] MEDS ORDERED: NS 0.9% VIAL 20 ML ONE (08:08)
[2020-06-23] MEDS: LIDOCAINE 1% 20 ML MDV ONE ×2 (08:33→08:45)
[2020-06-23] MEDS: HEPARIN 5000 UNIT/ML 1 ML VIAL ONE ×4 (08:34→09:08)
[2020-06-23] MEDS: CEFAZOLIN/SWI 1gm 1 GM/10 ML SYR ONE ×2 (08:38→08:45)
[2020-06-23] MEDS ORDERED: FENTANYL CITR 100 MCG/2 ML ONE (09:03)
[2020-06-23] MEDS ORDERED: LIDOCAINE 2% MPF 5 ML VIAL ONE (09:03)
[2020-06-23] MEDS ORDERED: propofoL 200 MG/20 ML VIAL IV ONE (09:03)
--- NOTE | 2020-06-23 09:37 | RAD REPORT ---
EXAM DESCRIPTION: RAD - Fluoroscopy <1 Hour - 06/23/2020 9:27 am CLINICAL HISTORY: Venous catheter insertion. PORT A CATH PLACEMENT COMPARISON: Surgical Specimen dated 04/26/2020 FINDINGS: Fluoroscopic imaging is submitted from placement of a venous catheter. Details of the pro cedure not available. Fluoroscopy time: 0.4 minutes
--- NOTE | 2020-06-23 09:51 | RAD REPORT ---
EXAM DESCRIPTION: RAD - Chest Single View - 06/23/2020 9:43 am CLINICAL HISTORY: POST PORT A CATH PLACEMENT Chest pain. COMPARISON: Chest Pa And Lat (2 Views) dated 04/21/2020; Chest Pa And Lat (2 Views) dated 09/29/2018; Chest Pa And Lat (2 Views) dated 07/30/2017; Chest Single View dated 05/07/2017 FINDINGS: Portable technique limits examination quality. Right-sided port catheter is placed with its tip in the SVC. Bilateral pulmonary opacities are noted, unchanged. The heart is moderately enlarged.No postprocedure pneumothorax. IMPRESSION: No postprocedure pneumothorax.
--- NOTE | 2020-06-23 10:46 | OP ---
Date of Procedure: 06/23/2020 Surgeon: Sushil Morton MD Fly Finisher: HANNAH Rae. Preoperative Diagnosis: Left breast cancer. Postoperative Diagnosis: Left breast cancer. Procedure: Placement of right IJ Port-A-Cath and interpretation of intraoperative fluoroscopy. Estimated Blood Loss: Minimal. Specimen: None. Findings: Normal anatomy. Anesthesia: MAC. Complications: None. Disposition: The patient tolerated the procedure in stable condition, taken to Recovery in good gene ral condition. Procedure In Detail: The patient was brought to the OR and placed in supine position. MAC anesthesi a begun. The patient was prepped and draped in usual sterile fashion. Lidocaine 1% infiltrated loca lly. An 18-gauge needle was used to access the right IJ vein. Guidewire was passed. Position was confirmed with fluoroscopy. Counterincision was made 3 cm and the pocket was created. Tunneling device was used to tunnel the catheter between the 2 wound sites and then Seldinger technique used to enter the catheter placed in the SVC and cut to corina ropriate size, attached to the Port-A-Cath device. Port-A-Cath device was attached to the subcutaneo us tissue with 3-0 Vicryl and then 3-0 chromic used to approximate the subcutaneous tissue and close skin. Port was flushed with heparin and packed with heparin with good blood flow. Sterile dressing was applied. The patient was awakened and taken to Recovery. Chest x-ray has been ordered. Disposition: Home. Condition: Stable. Discharge Instructions: Resume home medications and diet. Activity as tolerated. No heavy lifting. Remove outer dressing in 2 days. Shower. Keep wound clean and dry. Followup in my office 2 weeks . Call for appointment. [facility]. Tylenol No.3 one tablet p.o. q.4 p.r.n. pain. /MODL Voice ID: [id number] Report ID: [id number]
[2020-06-23] MEDS ORDERED: CODEINE 30MG/APAP 300MG TAB ONE (11:01)
[2020-06-23 13:40] VITALS: TEMP 97.8; O2SAT 98
[2020-06-23 13:41] VITALS: BP 154/50
== END 2020-06-23 11:30 | disposition home or self-care (01) ==
LOC: OR 07:32
PROVIDERS: ATTEND Surgery
PROC: 05HM33Z Insertion of Infusion Device into Right Internal Jugular Vein, Percutaneous Approach (ICD-10-PCS; principal; 2020-06-23 08:45)
DX: C50.912 Malignant neoplasm of unspecified site of left female breast (principal); J44.9 Chronic obstructive pulmonary disease, unspecified; I51.9 Heart disease, unspecified; Z11.59 Encounter for screening for other viral diseases
CPT/HCPCS: 85025; 36415; 71045; 36561; U0002; J2704; J1644 ×2; J3010; J0690; J7120; C1788; 76000